=== PATIENT | male | born 1990 | race Caucasian/White ===

== ENCOUNTER 2022-09-16 09:24 | Day surgery (SDC) | payer MEDICARE, OTHER ==
[2022-09-16] MEDS ORDERED: SODIUM CHLORIDE 0.9% 500 ML 500 ML IV ONE (10:04)
[2022-09-16 10:15] LABS: Anisocytosis Slight; Basophils % (A) 1 %; Eosinophils # (A) 0.1 k/uL (0-0.7); Eosinophils % (A) 3 %; HCT 42.9 % (39.0-53.0); HGB 14.1 gm/dL (13.0-17.5); Lymphocytes # (A) 0.9 k/uL (1.0-4.8); Lymphocytes % (A) 21 %; MCH 31.4 pg (25.0-35.0); MCHC 32.9 g/dL (31.0-37.0); MCV 95.4 fL (80.0-100.0); Mean Platelet Volume 8.6; Monocytes # (A) 0.2 k/uL (0-1.0); Monocytes % (A) 5 %; Neutrophils % (A) 68 %; Platelet Count 159 k/uL (150-450); RDW 16.5 % (11.5-15.5); WBC 4.4 k/uL (3.8-10.6)
[2022-09-16] MEDS ORDERED: ONDANSETRON 4 MG/2 ML VIAL ONE (10:21)
[2022-09-16] MEDS ORDERED: ONDANSETRON 4 MG/2 ML VIAL IVP ONE (10:29)
[2022-09-16] MEDS ORDERED: DEXAMETHASONE SOD PHOSPHATE 4 MG/ML 1 ML VIAL IVP ONE (10:30)
[2022-09-16 10:39] LABS: Calcium 9.2 mg/dL (8.4-10.2); Potassium 3.7 mmol/L (3.5-5.1)
[2022-09-16] MEDS ORDERED: MIDAZOLAM 2 MG/2 ML VIAL IVP ONE (10:50)
[2022-09-16] MEDS ORDERED: fentaNYL (PF) 50 MCG/ML 2 ML AMP IVP ONE (10:51)
[2022-09-16] MEDS ORDERED: ROPIVACAINE 5 MG/ML 30 ML VIAL ONE (10:55)
[2022-09-16] MEDS ORDERED: GLYCOPYRROLATE 0.2 MG/ML 2 ML VIAL ONE (10:55)
[2022-09-16] MEDS ORDERED: LIDOCAINE 2% INJ 20 MG/ML (2 ML VIAL) ONE (10:55)
[2022-09-16] MEDS ORDERED: ROCURONIUM 10 MG/ML (5 ML VIAL) IV ONE (10:55)
[2022-09-16] MEDS ORDERED: SUCCINYLCHOLINE CHLORIDE 200 MG/10 ML VIAL IV ONE (10:55)
[2022-09-16] MEDS ORDERED: HEPARIN SODIUM,PORCINE 5,000 UNIT/ML 1 ML VIAL ONE (10:55)
[2022-09-16] MEDS ORDERED: PROPOFOL 10 MG/ML 20 ML VIAL IV ONE (10:55)
[2022-09-16] MEDS ORDERED: NEOSTIGMINE 1 MG/ML 10 ML VIAL ONE (10:55)
[2022-09-16] MEDS ORDERED: MIDAZOLAM 2 MG/2 ML VIAL ONE (10:55)
--- NOTE | 2022-09-16 11:13 | P.ANPRN ---
Procedure Note - Anesthesia - Nerve Block Performed Left Supraclavicular Time Out Performed: Yes (10:50) Date of Procedure: 09/16/22 Procedure Start Time: 10:50 Procedure Stop Time: 10:55 Location of Patient: PreOp Indication: Acute Post-Operative Pain, Requested by Surgeon (Dr Shah) Sedation Type: Sedate with meaningful contact maintained Preparation: Sterile Prep Position: Supine Catheter: None Needle Types: Pajunk Needle Gauge: Other (see comment) (22g) Ultrasound used to visualize needle placement: Yes Ultrasound used to observe medication spread: Yes Injectate: 0.5% Ropivacaine (see comment for volume) (20cc) Blood Aspirated: No Pain Paresthesia on Injection Noted: No Resistance on Injection: Normal Image Stored and Saved: Yes Events: Uneventful and Well Tolerated
[2022-09-16] MEDS ORDERED: THROMBIN (BOVINE) 5,000 UNIT VIAL TOPICAL ONE (11:27)
[2022-09-16] MEDS ORDERED: GELATIN SPONGE,ABSORB (LARGE) 1 EACH SPONGE TOPICAL ONE (11:27)
[2022-09-16] MEDS ORDERED: HEPARIN SODIUM,PORCINE 2,000 UNIT in SODIUM CHLORIDE 0.9% 500 ML 500 ML IRRIGATION ONE (11:28)
[2022-09-16] MEDS ORDERED: ceFAZolin 2 GM in SODIUM CHLORIDE 0.9% 500 ML 500 ML IRRIGATION ONE (11:29)
[2022-09-16 14:25] VITALS: TEMP 97.3
[2022-09-16 14:30] VITALS: RESP 16
[2022-09-16 15:08] VITALS: BP 116/65; PULSE 75
--- NOTE | 2022-09-16 16:09 | P.OP ---
Date of Procedure: 09/16/22 Preoperative Diagnosis: ESRD Postoperative Diagnosis: Same Procedure(s) Performed: Left upper extremity basilic vein transposition stage II Anesthesia: VALERIE Surgeon: Karlos Shah Estimated Blood Loss (ml): 20 Pathology: none sent Condition: stable Disposition: PACU Indications for Procedure: 32 year old gentleman with history of ESRD on HD via right chest catheter who previously underwent stage I BVT presents today for stage II. Description of Procedure: After written informed consent was obtained the patient all risks benefits competitions were described the patient is brought to the operative suite and laid in the supine position with the left arm placed on an armboard. The arm was prepped and draped in usual sterile fashion after appropriate anesthetic was performed per the anesthesiologist. Timeout was performed in normal fashion and antibiotics were administered prior to incision. A vertical incision was then created over the basilic vein just proximal to the elbow and dissection was carried down to the vein utilizing electrocautery. The vein was then dissected free in a circumferential manner. This was then followed up the medial aspect of the upper arm with serial incisions created to get access to the basilic vein. The basilic vein was dissected in a circumferential manner with branches ligated with 3-0 silk suture. Once complete dissection was carried out to the axilla the vein at the elbow just proximal to the previous anastomosis was clamped and ligated. Patient was then administered 3000 units of heparin. The vein was then marked and tunneled from the axilla to the existing anastomosis at the elbow. An end to end anastomosis was then created with 6-0 Prolene suture x 2. Prior to last sutures being placed control was released revealing good pulsatile blood flow into the anastomosis as well as good backbleeding from the vein itself. Final sutures were then placed and control was released. Good palpable thrill was noted throughout the proximal fistula to the mid upper arm. Ultrasound was then u tilized to visualize the fistula which demonstrated no evidence of twisting with good pulsatile blood flow throughout the entirety of the vein. The area was then copiously irrigated with antibiotics solution and the incisions were then closed in a multilayer fashion. The skin was cleansed and dressings were placed. Patient tolerated procedure well had a palpable radial pulse at the conclusion of the procedure.
== END 2022-09-16 15:25 | disposition home or self-care (01) ==
LOC: OR 09:24
PROVIDERS: ATTEND Surgery
DX: I12.0 Hypertensive chronic kidney disease with stage 5 chronic kidney disease or end stage renal disease (principal); N18.6 End stage renal disease; G89.18 Other acute postprocedural pain; E78.5 Hyperlipidemia, unspecified; Z95.5 Presence of coronary angioplasty implant and graft; K21.9 Gastro-esophageal reflux disease without esophagitis; Z86.73 Personal history of transient ischemic attack (TIA), and cerebral infarction without residual deficits; Z79.82 Long term (current) use of aspirin; Z79.899 Other long term (current) drug therapy
CPT/HCPCS: 64415; 80048; 85025; 36832; J2250; J0330; J1644; J1100; J2710; J0690; J2405; J3010; J2795; J2704; J2001

== ENCOUNTER 2022-10-14 00:13 | Emergency (ER) | payer MEDICARE, OTHER ==
[2022-10-14 00:31] VITALS: RESP 18; TEMP 98.1
--- NOTE | 2022-10-14 00:42 | ED ---
General Adult HPI - General Chief complaint: Recheck/Abnormal Lab/Rx Stated complaint: Vascular Consult Time Seen by Provider: 10/14/22 00:14 Source: EMS Mode of arrival: EMS - History of Present Illness Initial comments: This is a 32-year-old male with a significant past medical history including aortic grafting and end-stage renal disease on dialysis with a recently new left upper extremity fistula placed on 09/16/[address] Shah presents emergency department via EMS as a transfer patient from [facility]. The patient was transferred for evaluation for possible infected left upper extremity fistula. Workup was obtained at the outside facility that did not show an elevated white blood cell count or any signs of infection however the fistula itself was mildly erythematous and swollen. The patient did have a good thrill noted. The patient stated that he noted that it was more swollen today but had not looked at it "over the last several weeks." The patient himself on arrival was resting in bed comfortably without any acute pain but did state that the left upper extremity was sore area and the patient denied any other acute pain or complaints at this time including any lightheadedness, dizziness as well as any fevers and chills. - Related Data Home Medications Medication Instructions Recorded Confirmed Aspirin 81 mg PO DAILY 06/05/22 09/16/22 Atorvastatin [Lipitor] 40 mg PO HS 06/05/22 09/16/22 Calcium Acetate 667 mg PO TID-W/MEALS 06/05/22 09/16/22 Citalopram Hydrobromide 20 mg PO DAILY 06/05/22 09/16/22 [Citalopram HBr] Docusate [Colace] 100 mg PO DAILY PRN 06/05/22 09/16/22 Melatonin 6 mg PO HS 06/05/22 09/16/22 Midodrine HCl [ProAmantine] 2.5 mg PO DIRECTED PRN 06/05/22 09/16/22 Omeprazole 20 mg PO BID 06/05/22 09/16/22 Unk Vitamin B Complex 1 tab PO DAILY 06/05/22 09/16/22 Eliquis(Unknown) 1 tab PO BID 09/12/22 09/16/22 Furosemide [Lasix] 80 mg PO DAILY 09/12/22 09/16/22 Previous Rx's Medication Instructions Recorded Sulfamethox-Tmp 800-160Mg [Bactrim 1 tab PO Q12HR #14 tab 10/14/22 DS 800-160 mg] Allergies Allergy/AdvReac Type Severity Reaction Status Date / Time No Known Allergies Allergy Verified 09/16/22 09:51 Review of Systems ROS Statement: Those systems with pertinent positive or pertinent negative responses have been documented in the HPI. ROS Other: All systems not noted in ROS Statement are negative. Past Medical History Past Medical History: CVA/TIA, Dialysis, GERD/Reflux, Hyperlipidemia, Renal Disease Additional Past Medical History / Comment(s): dialysis MWF since 03/25 after Aortic aneurysm repair. stroke 11/23 spent a month in hospital then to rehab.home in december had another stroke sent to [facility]( discovered infection to aoritc repair ) sent him to [facility] aortic aneurysm replacement (with cadaver) in 01/24, then to [facility] D/C to home april 05. As a baby had a leaky valve and extra valve. some low BP with dialysis. short term memory loss. left foot feels asleep. left side weak. History of Any Multi-Drug Resistant Organisms: None Reported Additional Past Surgical History / Comment(s): aortic aneurysm repair 03/25, 2nd surgery replacement 01/28/22. Repair of leaky valve as infant. peritoneal dialysis catheter. stent in kidney. procedures at [facility] Past Anesthesia/Blood Transfusion Reactions: No Reported Reaction Smoking Status: Never smoker - Past Family History Mother Family Medical History: Cancer Additional Family Medical History / Comment(s): breast cancer. 2003 Father Family Medical History: Hyperlipidemia, Hypertension, Myocardial Infarction ([place]) General Exam Limitations: no limitations General appearance: alert, in no apparent distress Head exam: Present: atraumatic, normocephalic, normal inspection Eye exam: Present: normal appearance, PERRL Pupils: Present: normal accommodation ENT exam: Present: normal exam, normal oropharynx, mucous membranes moist Neck exam: Present: normal inspection, full ROM Respiratory exam: Present: normal lung sounds bilaterally Cardiovascular Exam: Present: regular rate, normal rhythm, normal heart sounds GI/Abdominal exam: Present: soft, normal bowel sounds Extremities exam: Present: normal inspection, full ROM, other (Swelling noted around the left upper extremity fistula with positive thrill. There was minor erythema and neck muscles around the fistula however there was no acute tenderness to palpation noted.) Back exam: Present: normal inspection, full ROM Neurological exam: Present: alert, oriented X3, CN II-XII intact Psychiatric exam: Present: normal affect, normal mood Skin exam: Present: warm, dry Course Vital Signs 10/14/22 00:16 Temperature 98.1 F Pulse Rate 84 Respiratory 18 Rate Blood Pressure 116/73 O2 Sat by Pulse 96 Oximetry Medical Decision Making - Medical Decision Making Was pt. sent in by a medical professional or institution (RONALD Kaur, WAISTLINE JOINER, urgent care, hospital, or jail...) When possible be specific @ -Yes, patient was transferred from [facility] for evaluation by vascular surgery. Did you speak to anyone other than the patient for history (EMS, parent, family, police, friend...)? What history was obtained from this source @ -No Did you review nursing and triage notes (agree or disagree)? Why? @ -I reviewed and agree with nursing and triage notes Were old charts reviewed (outside hosp., previous admission, EMS record, old EKG, old radiological studies, urgent care reports/EKG's, jail records)? Report findings @ -No old charts were reviewed Differential Diagnosis (chest pain, altered mental status, abdominal pain women, abdominal pain men, vaginal bleeding, weakness, fever, dyspnea, syncope, headache, dizziness, GI bleed, back pain, seizure, CVA, palpatations, mental health)? @ -Infected AV fistula, clotted AV fistula, cellulitis EKG interpreted by me (3pts min.). @ -None X-rays interpreted by me (1pt min.). @ -None done CT interpreted by me (1pt min.). @ -None done U/S interpreted by me (1pt. min.). @ -None done What testing was considered but not performed or refused? (CT, X-rays, U/S, labs)? Why? @ -Imaging was considered including computed tomography scan however there was no further imaging needed per vascular surgery recommendations. What meds were considered but not given or refused? Why? @ -None Did you discuss the management of the patient with other professionals (pr ofessionals i.e. RONALD Kaur, WAISTLINE JOINER, lab, RT, psych nurse, social service worker, casino runner, teacher, control systems drafting officer, disease case manager)? Give summary @ -Yes, Dr. Shah was contacted regarding the patient Was smoking cessation discussed for >3mins.? @ -No Was critical care preformed (if so, how long)? @ -No Were there social determinants of health that impacted care today? How? (Homelessness, low income, unemployed, alcoholism, drug addiction, transportation, low edu. Level, literacy, decrease access to med. care, custodial, rehab)? @ -No Was there de-escalation of care discussed even if they declined (Discuss DNR or withdrawal of care, Hospice)? DNR status @ -No What co-morbidities impacted this encounter? (DM, HTN, Smoking, COPD, CAD, Cancer, CVA, ARF, Chemo, Hep., AIDS, mental health diagnosis, sleep apnea, morbid obesity)? @ -End-stage renal disease on dialysis, recently placed fistula, thoracic aortic grafting and stenting Was patient admitted / discharged? Hospital course, mention meds given and route, prescriptions, significant lab abnormalities, going to OR and other pertinent info. @ -The patient was seen and evaluated emergency department. Physical exam, the patient was resting in bed without any acute distress. Vital signs admission were stable. Due to the nature the patient's presentation, the vascular surgeon, Dr. Shah, who performed his original surgery was contacted. He did state that the patient would require antibiotics however did not require to be evaluated as an admission to the hospital. He did state that he can evaluate t he patient in the office on Friday the patient was agreeable. I did speak to the patient regarding this and he did state that he would prefer to be discharged and to follow-up in the office while taking Bactrim. The patient was given a dose of vancomycin at the outside facility therefore was not started on Bactrim currently. The patient was given a prescription to start Bactrim in the morning. The patient was understanding of these instructions and all his questions were answered. The patient was discharged home in stable condition. Undiagnosed new problem with uncertain prognosis? @ -No Drug Therapy requiring intensive monitoring for toxicity (Heparin, Nitro, Insulin, Cardizem)? @ -No Were any procedures done? @ -No Diagnosis/symptom? @ -Left AV fistula infection Acute, or Chronic, or Acute on Chronic? @ -Acute on chronic Uncomplicated (without systemic symptoms) or Complicated (systemic symptoms)? @ -Uncomplicated Side effects of treatment? @ -No Exacerbation, Progression, or Severe Exacerbation? @ -No Poses a threat to life or bodily function? How? (Chest pain, [place], [place], pneumonia, PE, COPD, DKA, ARF, appy, cholecystitis, CVA, Diverticulitis, Homicidal, Suicidal, threat to staff... and all critical care pts) @ -No Disposition Clinical Impression: AV fistula infection Disposition: HOME SELF-CARE Condition: Stable Prescriptions: Sulfamethox-Tmp 800-160Mg [Bactrim DS 800-160 mg] 1 tab PO Q12HR #14 tab Is patient prescribed a controlled substance at d/c from ED?: No Referrals: Lakhwinder De Leon MD [Primary Care Provider] - 1-2 days Karlos Shah DO [STAFF PHYSICIAN] - 10/15/22 Time of Disposition: 00:05
[2022-10-14 01:53] VITALS: BP 119/72; PULSE 82
== END 2022-10-14 01:56 | disposition home or self-care (01) ==
LOC: EC 00:13
DX: L98.8 Other specified disorders of the skin and subcutaneous tissue (principal); E78.5 Hyperlipidemia, unspecified; K21.9 Gastro-esophageal reflux disease without esophagitis; Z79.82 Long term (current) use of aspirin; Z79.899 Other long term (current) drug therapy
CPT/HCPCS: 99283

== ENCOUNTER 2023-02-28 15:38 | Inpatient (IN) | payer MEDICARE, OTHER ==
[2023-02-28 16:27] LABS: Anisocytosis Slight; Basophils % (A) 0 %; Eosinophils # (A) 0.1 k/uL (0-0.7); Eosinophils % (A) 2 %; HCT 35.1 % (39.0-53.0); HGB 11.6 gm/dL (13.0-17.5); Lymphocytes # (A) 0.9 k/uL (1.0-4.8); Lymphocytes % (A) 14 %; MCH 31.1 pg (25.0-35.0); MCV 94.2 fL (80.0-100.0); Mean Platelet Volume 8.2; Monocytes # (A) 0.3 k/uL (0-1.0); Monocytes % (A) 5 %; Neutrophils # (A) 5.4 k/uL (1.3-7.7); Neutrophils % (A) 79 %; Platelet Count 193 k/uL (150-450); RBC 3.72 m/uL (4.30-5.90); RDW 16.6 % (11.5-15.5); WBC 6.8 k/uL (3.8-10.6)
[2023-02-28] MEDS ORDERED: MORPHINE SULFATE 4 MG/ML SYRINGE IV STA (16:47)
[2023-02-28] MEDS ORDERED: SODIUM CHLORIDE 0.9% 1,000 ML IV STA (16:47)
--- NOTE | 2023-02-28 16:54 | ED ---
Extremity Problem HPI - General Chief complaint: Extremity Problem,Nontraumatic Stated complaint: Fistula is blocked Time Seen by Provider: 02/28/23 16:02 Source: patient, RN notes reviewed, old records reviewed Mode of arrival: ambulatory Limitations: no limitations - History of Present Illness Initial comments: This is a 32-year-old male to the emergency department for evaluation today. Patient Dese for evaluation of significant blood thinners. Patient has severe pain in the left upper arm severe pain and swelling of the left upper extremity. Patient was unable to get dialysis on Friday and today secondary to the significant amount of swelling in his fistula site. MD Complaint: extremity pain, extremity swelling -: days(s) Location: left, upper extremity History of Same: Yes -: Yes myalgia Radiation: proximal, distal Severity scale (1-10): 10 Quality: stabbing, aching Consistency: constant Improves with: nothing Worsens with: nothing Associated Symptoms: denies other symptoms - Related Data Home Medications Medication Instructions Recorded Confirmed Aspirin 81 mg PO DAILY 06/05/22 02/28/23 Atorvastatin [Lipitor] 40 mg PO DAILY 06/05/22 02/28/23 Citalopram Hydrobromide 20 mg PO DAILY 06/05/22 02/28/23 [Citalopram HBr] Furosemide [Lasix] 80 mg PO DAILY 09/12/22 02/28/23 Apixaban [Eliquis] 5 mg PO BID 02/28/23 02/28/23 Calcium Acetate 667mg Capsule 1 cap PO TID-W/MEALS 02/28/23 02/28/23 Omeprazole 40 mg PO DAILY 02/28/23 02/28/23 Vit B Comp No.3/Folic/C/Biotin 1 tab PO DAILY 02/28/23 02/28/23 [Daphnie-Richard Rx Tablet] Previous Rx's Medication Instructions Recorded HYDROcodone/APAP 5-325MG [[place] 1 tab PO DIRECTED PRN 3 Days #3 03/02/23 5-325] tab Lidocaine-Prilocaine Cream [Emla 1 applic TOPICAL DIRECTED #5 gm 03/02/23 Cream 2.5%/2.5%] Sevelamer [Renvela] 1,600 mg PO TID-W/MEALS tab 03/02/23 Allergies Allergy/AdvReac Type Severity Reaction Status Date / Time No Known Allergies Allergy Verified 02/28/23 19:36 Review of Systems ROS Statement: Those systems with pertinent positive or pertinent negative responses have been documented in the HPI. ROS Other: All systems not noted in ROS Statement are negative. Past Medical History Past Medical History: CVA/TIA, Dialysis, GERD/Reflux, Hyperlipidemia, Renal Disease Additional Past Medical History / Comment(s): dialysis MWF since 03/25 after Aortic aneurysm repair. stroke 11/23 spent a month in hospital then to rehab.home in december had another stroke sent to [facility]( discovered i nfection to aoritc repair ) sent him to [facility] aortic aneurysm replacement (with cadaver) in 01/24, then to [facility] D/C to home april 05. As a baby had a leaky valve and extra valve. some low BP with dialysis. short term memory loss. left foot feels asleep. left side weak. History of Any Multi-Drug Resistant Organisms: None Reported Additional Past Surgical History / Comment(s): aortic aneurysm repair 03/25, 2nd surgery replacement 01/28/22. Repair of leaky valve as . peritoneal dialysis catheter. stent in kidney. procedures at [facility] Past Anesthesia/Blood Transfusion Reactions: No Reported Reaction Past Psychological History: Anxiety, Depression Smoking Status: Never smoker - Past Family History Mother Family Medical History: Cancer Additional Family Medical History / Comment(s): breast cancer. 2004 Father Family Medical History: Hyperlipidemia, Hypertension, Myocardial Infarction ([place]) General Exam Limitations: no limitations General appearance: alert, in no apparent distress, anxious Head exam: Present: atraumatic, normocephalic, normal inspection Eye exam: Present: normal appearance, PERRL, EOMI. Absent: scleral icterus, conjunctival injection, periorbital swelling ENT exam: Present: normal exam, mucous membranes moist Neck exam: Present: normal inspection. Absent: tenderness, meningismus, lymphadenopathy Respiratory exam: Present: normal lung sounds bilaterally. Absent: respiratory distress, wheezes, rales, rhonchi, stridor Cardiovascular Exam: Present: normal rhythm, tachycardia, normal heart sounds. Absent: systolic murmur, diastolic murmur, rubs, gallop, clicks GI/Abdominal exam: Present: soft, normal bowel sounds. Absent: distended, tenderness, guarding, rebound, rigid Extremities exam: Present: tenderness, other (significant edema LUE). Absent: pedal edema, joint swelling, calf tenderness Back exam: Present: normal inspection Neurological exam: Present: alert, oriented X3, CN II-XII intact Psychiatric exam: Present: normal affect, normal mood Skin exam: Present: warm, dry, intact, normal color. Absent: rash Course Vital Signs 02/28/23 02/28/23 02/28/23 15:44 17:07 19:39 Temperature 98.3 F Pulse Rate 105 H 99 92 Respiratory 18 18 18 Rate Blood Pressure 124/72 120/72 119/77 O2 Sat by Pulse 95 100 Oximetry 02/28/23 22:00 Temperature Pulse Rate 90 Respiratory 18 Rate Blood Pressure 121/84 O2 Sat by Pulse 100 Oximetry - Reevaluation(s) Reevaluation #1: 02/28/23 17:21 Medical record is reviewed Reevaluation #2: 02/28/23 21:12 Patient having persistent pain Reevaluation #3: 02/28/23 21:12 Patient informed of results questions answered Reevaluation #4: 02/28/23 17:21 Was pt. sent in by a medical professional or institution (, PA, DETONATOR ASSEMBLER, urgent care, hospital, or custodial...) When possible be specific @ -no Did you speak to anyone other than the patient for history (EMS, parent, family, police, friend...)? What history was obtained from this source @ -no Did you review nursing and triage notes (agree or disagree)? Why? @ -agree Are old charts reviewed (outside hosp., previous admission, EMS record, old EKG, old radiological studies, urgent care reports/EKG's, custodial records)? Report findings @ -yes Differential Diagnosis (chest pain, altered mental status, abdominal pain women, abdominal pain men, vaginal bleeding, weakness, fever, dyspnea, syncope, headache, dizziness, GI bleed, back pain, seizure, CVA, palpatations, mental health, musculoskeletal)? @ -prior EKG interpreted by me (3pts min.). @ -yes X-rays interpreted by me (1pt min.). @ -no CT interpreted by me (1pt min.). @ -no U/S interpreted by me (1pt. min.). @ -yes What testing was considered but not performed or refused? (CT, X-rays, U/S, labs)? Why? @ -none What meds were considered but not given or refused? Why? @ -none Did you discuss the management of the patient with other professionals (professionals i.e. , PA, DETONATOR ASSEMBLER, lab, RT, psych nurse, social media job titles, testing consultant, teacher, hearing officer, vocational case manager)? Give summary @ -no Was smoking cessation discussed for >3mins.? @ -no Was critical care preformed (if so, how long)? @ -no Were there social determinants of health that impacted care today? How? (Homelessness, low income, unemployed, alcoholism, drug addiction, transportatio n, low edu. Level, literacy, decrease access to med. care, skilled nursing, rehab)? @ -none Was there de-escalation of care discussed even if they declined (Discuss DNR or withdrawal of care, Hospice)? DNR status @ -no What co-morbidities impacted this encounter? (DM, HTN, Smoking, COPD, CAD, Cancer, CVA, ARF, Chemo, Hep., AIDS, mental health diagnosis, sleep apnea, morbid obesity)? @ -none Was patient admitted / discharged? Hospital course, mention meds given and route, prescriptions, significant lab abnormalities, going to OR and other pertinent info. @ - 32 male to the emergency department for evaluation of dialysis graft malfunction fistula malfunction, patient does have significant hematoma above left upper arm, patient be admitted for vascular consult need for dialysis as he admits his last 2 dialysis appointments Admitted Undiagnosed new problem with uncertain prognosis? @ -no Drug Therapy requiring intensive monitoring for toxicity (Heparin, Nitro, Insulin, Cardizem)? @ -no Were any procedures done? @ -no Diagnosis/symptom? @ -Hematoma above her arm above fistula Acute, or Chronic, or Acute on Chronic? @ -Acute Uncomplicated (without systemic symptoms) or Complicated (systemic symptoms)? @ -Complicated Side effects of treatment? @ -no Exacerbation, Progression, or Severe Exacerbation? @ -exacerbation Poses a threat to life or bodily function? How? (Chest pain, [place], [place], pneumonia, PE, COPD, DKA, ARF, appy, cholecystitis, CVA, Diverticulitis, Homicidal, Suicidal, threat to staff... and all critical care pts) @ -yes if unable to get dialysis - Consultations Consultation #1: Spoke with alana who will admit this patient Medical Decision Making - Medical Decision Making 32 male to the emergency department for evaluation of dialysis graft malfunction fistula malfunction, patient does have significant hematoma above left upper arm, patient be admitted for vascular consult need for dialysis as he admits his last 2 dialysis appointments - Lab Data Result diagrams: 03/02/23 11:27 03/02/23 11:27 Lab Results 02/28/23 02/28/23 02/28/23 Range/Units 16:09 16:09 16:09 WBC 6.8 (3.8-10.6) k/uL RBC 3.72 L (4.30-5.90) m/uL Hgb 11.6 L (13.0-17.5) gm/dL Hct 35.1 L (39.0-53.0) % MCV 94.2 (80.0-100.0) fL MCH 31.1 (25.0-35.0) pg MCHC 33.0 (31.0-37.0) g/dL RDW 16.6 H (11.5-15.5) % Plt Count 193 (150-450) k/uL MPV 8.2 Neutrophils % 79 % Lymphocytes % 14 % Monocytes % 5 % Eosinophils % 2 % Basophils % 0 % Neutrophils # 5.4 (1.3-7.7) k/uL Lymphocytes # 0.9 L (1.0-4.8) k/uL Monocytes # 0.3 (0-1.0) k/uL Eosinophils # 0.1 (0-0.7) k/uL Basophils # 0.0 (0-0.2) k/uL Anisocytosis Slight PT (10.0-12.5) sec INR (<1.2) APTT 33.5 H (22.0-30.0) sec Sodium 135 L (137-145) mmol/L Potassium 4.7 (3.5-5.1) mmol/L Chloride 95 L (98-107) mmol/L Carbon Dioxide 20 L (22-30) mmol/L Anion Gap 20 mmol/L BUN 91 H (9-20) mg/dL Creatinine 15.75 H* (0.66-1.25) mg/dL Est GFR (CKD-EPI)AfAm 4 (>60 ml/min/1.73 sqM) Est GFR (CKD-EPI)NonAf 4 (>60 ml/min/1.73 sqM) Glucose 83 (74-99) mg/dL Plasma Lactic Acid Tomasz (0.7-2.0) mmol/L Calcium 8.4 (8.4-10.2) mg/dL Phosphorus (2.5-4.5) mg/dL Magnesium (1.6-2.3) mg/dL Total Bilirubin 0.7 (0.2-1.3) mg/dL AST 19 (17-59) U/L ALT 24 (4-49) U/L Alkaline Phosphatase 95 (38-126) U/L NT-Pro-B Natriuret Pep pg/mL Total Protein 6.6 (6.3-8.2) g/dL Albumin 3.5 (3.5-5.0) g/dL 02/28/23 02/28/23 02/28/23 Range/Units 16:09 16:09 16:09 WBC (3.8-10.6) k/uL RBC (4.30-5.90) m/uL Hgb (13.0-17.5) gm/dL Hct (39.0-53.0) % MCV (80.0-100.0) fL MCH (25.0-35.0) pg MCHC (31.0-37.0) g/dL RDW (11.5-15.5) % Plt Count (150-450) k/uL MPV Neutrophils % % Lymphocytes % % Monocytes % % Eosinophils % % Basophils % % Neutrophils # (1.3-7.7) k/uL Lymphocytes # (1.0-4.8) k/uL Monocytes # (0-1.0) k/uL Eosinophils # (0-0.7) k/uL Basophils # (0-0.2) k/uL Anisocytosis PT 17.8 H (10.0-12.5) sec INR 1.8 H (<1.2) APTT (22.0-30.0) sec Sodium (137-145) mmol/L Potassium (3.5-5.1) mmol/L Chloride (98-107) mmol/L Carbon Dioxide (22-30) mmol/L Anion Gap mmol/L BUN (9-20) mg/dL Creatinine (0.66-1.25) mg/dL Est GFR (CKD-EPI)AfAm (>60 ml/min/1.73 sqM) Est GFR (CKD-EPI)NonAf (>60 ml/min/1.73 sqM) Glucose (74-99) mg/dL Plasma Lactic Acid Tomasz 1.3 (0.7-2.0) mmol/L Calcium (8.4-10.2) mg/dL Phosphorus 5.1 H (2.5-4.5) mg/dL Magnesium 2.1 (1.6-2.3) mg/dL Total Bilirubin (0.2-1.3) mg/dL AST (17-59) U/L ALT (4-49) U/L Alkaline Phosphatase (38-126) U/L NT-Pro-B Natriuret Pep 86269 pg/mL Total Protein (6.3-8.2) g/dL Albumin (3.5-5.0) g/dL - Radiology Data Radiology results: report reviewed (Chest x-ray x-ray forearm negative for traumatic injury, ultrasound left upper extremity positive for hematoma), image reviewed Disposition Clinical Impression: Hemodialysis catheter dysfunction, Hematoma Disposition: ADMITTED IP TO THIS HOSP Condition: Fair Is patient prescribed a controlled substance at d/c from ED?: No Time of Disposition: 21:10
[2023-02-28 17:32] LABS: INR 1.8 (<1.2); Prothrombin Time 17.8 sec (10.0-12.5)
[2023-02-28 17:56] LABS: ALT 24 U/L (4-49); AST 19 U/L (17-59); Albumin 3.5 g/dL (3.5-5.0); Alkaline Phosphatase 95 U/L (38-126); Anion Gap 20 mmol/L; Blood Urea Nitrogen 91 mg/dL (9-20); Calcium 8.4 mg/dL (8.4-10.2); Carbon Dioxide 20 mmol/L (22-30); Chloride 95 mmol/L (98-107); Glucose 83 mg/dL (74-99); Potassium 4.7 mmol/L (3.5-5.1); Sodium 135 mmol/L (137-145); Total Bilirubin 0.7 mg/dL (0.2-1.3); Total Protein 6.6 g/dL (6.3-8.2)
[2023-02-28 17:57] LABS: Magnesium 2.1 mg/dL (1.6-2.3); Phosphorus 5.1 mg/dL (2.5-4.5)
[2023-02-28 18:02] LABS: African American GFR (CKD) 4 (>60 ml/min/1.73 sqM); Non-African American GFR(CKD) 4 (>60 ml/min/1.73 sqM)
--- NOTE | 2023-02-28 20:15 | XR ---
EXAMINATION TYPE: XR chest 1V DATE OF EXAM: 02/28/2023 5:04 PM CLINICAL INDICATION:Male, 32 years old with history of pain; PH[facility] COMPARISON: None TECHNIQUE: XR chest 1V Frontal view of the chest. FINDINGS: Lungs/Pleura: Mild blunting of right costophrenic angle. No focal consolidation or pneumothorax seen. Pulmonary vascularity: Unremarkable. Heart/mediastinum: Cardiac and mediastinal silhouettes appear within normal limits. There are multipl e sternal wires and surgical clips suggesting prior cardiothoracic surgery. A loop recorder projects over the heart. There are EKG leads. Musculoskeletal: No definite acute process as seen. Other findings: None IMPRESSION: 1. Postoperative changes with mild blunting of the right costophrenic angle which could indicate sma ll effusion or pleural thickening/scarring. 2. Otherwise no acute cardiopulmonary disease/process.
--- NOTE | 2023-02-28 20:19 | XR ---
EXAMINATION TYPE: XR humerus LT DATE OF EXAM: 02/28/2023 5:05 PM CLINICAL INDICATION:Male, 32 years old with history of Severe Edema; PHH COMPARISON: None TECHNIQUE: The left humerus was examined in frontal and lateral projections. FINDINGS: Osseous mineralization appears appropriate. No destructive bone lesion or aggressive perios titis. Small sclerotic densities in the humeral head could relate to bone islands. No discrete focal soft tissue abnormality is evident. Mild edema is suggested. No radiopaque foreign body is seen. The remaining portions of the visualized chest are unremarkable. IMPRESSION: No acute osseous pathology.
--- NOTE | 2023-02-28 20:33 | US ---
EXAMINATION TYPE: Pre-Operative Non-Invasive Evaluation of the hand for Potential Radial Artery [address], Measurements only DATE OF EXAM: 02/28/2023 5:42 PM CLINICAL INDICATION: Male, 32 years old with history of pain; Sever swelling/bruising to left upper m edial arm x 4 days after dialysis on Friday SIDE PERFORMED: Left TECHNIQUE: Grayscale sonography with color Doppler and waveforms was performed in the area of concer n, including dialysis graft and area of swelling in the medial upper left arm. FINDINGS: Left arm dialysis graft/fistula appears patent. Large, complex collection left medial upper arm posterior to the fistula in area of patient's swell ing= 15.7 x 4.7 x 6.9 cm . No definite abnormal Doppler flow is seen in this. IMPRESSION: 1. Left arm dialysis graft/fistula appears patent. 2. Large, complex collection adjacent to the fistula in the area of swelling measures 15.7 x 4.7 x 6 .9 cm, without associated abnormal Doppler flow seen. Likely considerations include hematoma. Follow- up as clinically warranted.
[2023-02-28] MEDS ORDERED: NALOXONE 0.4 MG/ML 1 ML VIAL IV PRN (21:09)
[2023-02-28] MEDS: MORPHINE SULFATE 4 MG/ML SYRINGE IV PRN (21:41)
--- NOTE | 2023-02-28 23:43 | P.HPIM ---
History of Present Illness H&P Date: 02/28/23 Patient is a 32-year-old male with a PMH of ESRD secondary to polycystic kidney disease on HD MWF via LUE fistula, multiple CVAs, status post open heart surgery for valvular repair as per patient who presents to the emergency room for a malfunctioning fistula. Patient reports he has been on dialysis for the past 4 years but was unable to get his scheduled HD on Friday and today due to swelling and pain of his left arm proximal to the fistula. He reports ongoing pain at site, 5 out of 10. Denied fever, chills, chest pain, shortness of breath, nausea, vomiting, diaphoresis. Denied any trauma to the site. In the emergency room, upper extremity arterial Doppler revealed that the fistula was patent with a large complex collection adjacent to the fistula with area of swelling measuring 15.7 x 4.7 x 6.9 cm, concerning for hematoma. A chest x-ray revealed no significant acute abnormalities. Left humeral x-ray was unremarkable. Laboratory evaluation was remarkable for hemoglobin 11.6, BUN 91, creatinine 15.75, proBNP 12,300. ED documentation reviewed and case discussed with ED provider. Review of systems: Pertinent positives and negatives as discussed in HPI, a complete review of systems was performed and all other systems are negative. Physical examination: Vital signs reviewed General: non toxic, no distress, appears older than stated age, normal weight Derm: Left upper extremity fistula with palpable thrill noted with significant arm swelling with minimal erythema or induration, warm Head: atraumatic, normocephalic, symmetric Eyes: EOMI, no lid lag, anicteric sclera, pupils equal round reactive to light ENT: Nose and ears atraumatic Neck: No cervical lymphadenopathy, trachea midline, supple Mouth: no lip lesion, mucus membranes moist Cardiovascular: S1S2 reg, no murmur, positive dorsalis pedis pulse bilateral, no edema Lungs: CTA bilateral, no rhonchi, no rales, no accessory muscle use Abdominal: soft, nontender to palpation, no guarding Ext: muscle strength 5 out of 5 in all 4 extremities grossly, no gross muscle atrophy, no contractures, Neuro: CN II-XI grossly intact, no gross focal neuro deficits Psych: Alert, oriented, appropriate affect Assessment: Malfunctioning LUE fistula with suspected hematoma On Eliquis, patient not sure why he's on it Chronic conditions: Status post valvular repair, hypertension, hyperlipidemia, history of CVAs Imaging: In the emergency room, upper extremity arterial Doppler revealed that the fistula was patent with a large complex collection adjacent to the fistula with area of swelling measuring 15.7 x 4.7 x 6.9 cm, concerning for hematoma. A chest x-ray revealed no significant acute abnormalities. Left humeral x-ray was unremarkable. Data Review: Laboratory evaluation was remarkable for hemoglobin 11.6, BUN 91, creatinine 15.75, proBNP 12,300. Plan: Vascular surgery consulted Nephrology consulted for resumption of hemodialysis Pain control with morphine 4 mg IV every 4 hours when necessary Continue home medications Hold off on Eliquis for now in setting of suspected hematoma DVT prophylaxis: Eliquis The patient is admitted with an anticipated greater than 2 midnight stay for evaluation of fistula repair CODE STATUS: Full Code Discussed with: Patient Anticipated discharge place: Home Past Medical History Past Medical History: CVA/TIA, Dialysis, GERD/Reflux, Hyperlipidemia, Renal Disease Additional Past Medical History / Comment(s): dialysis MWF since 03/25 after Aortic aneurysm repair. stroke 11/23 spent a month in hospital then to rehab.home in december had another stroke sent to [facility]( discovered infection to aoritc repair ) sent him to [facility] aortic aneurysm replacement (with cadaver) in 01/24, then to [facility] D/C to home april 05. As a baby had a leaky valve and extra valve. some low BP with dialysis. short term memory loss. left foot feels asleep. left side weak. History of Any Multi-Drug Resistant Organisms: None Reported Additional Past Surgical History / Comment(s): aortic aneurysm repair 03/25, 2nd surgery replacement 01/28/22. Repair of leaky valve as infant. peritoneal dialysis catheter. stent [facility] kidney[facility] Past Anesthesia/Blood Transfusion Reactions: No Reported Reaction Past Psychological History: Anxiety, Depression Smoking Status: Vaper Past Alcohol Use History: None Reported Past Drug Use History: None Reported - Past Family History Mother Family Medical History: Cancer Additional Family Medical History / Comment(s): breast cancer. 2003 Father Family Medical History: Hyperlipidemia, Hypertension, Myocardial Infarction ([place]) Medications and Allergies Home Medications Medication Instructions Recorded Confirmed Type Aspirin 81 mg PO DAILY 06/05/22 02/28/23 History Atorvastatin [Lipitor] 40 mg PO DAILY 06/05/22 02/28/23 History Citalopram Hydrobromide 20 mg PO DAILY 06/05/22 02/28/23 History [Citalopram HBr] Furosemide [Lasix] 80 mg PO DAILY 09/12/22 02/28/23 History Apixaban [Eliquis] 5 mg PO BID 02/28/23 02/28/23 History Calcium Acetate 667mg Capsule 1 cap PO TID-W/MEALS 02/28/23 02/28/23 History Omeprazole 40 mg PO DAILY 02/28/23 02/28/23 History Vit B Comp No.3/Folic/C/Biotin 1 tab PO DAILY 02/28/23 02/28/23 History [Daphnie-Richard Rx Tablet] Allergies Allergy/AdvReac Type Severity Reaction Status Date / Time No Known Allergies Allergy Verified 02/28/23 19:36 Physical Exam Vitals: Vital Signs Temp Pulse Pulse Resp BP BP Pulse Ox 02/28/23 22:28 97.7 F 94 16 125/76 97 02/28/23 22:00 90 18 121/84 100 02/28/23 19:39 92 18 119/77 02/28/23 17:07 99 18 120/72 100 02/28/23 15:44 98.3 F 105 H 18 124/72 95 Intake and Output 02/28/23 02/28/23 03/01/23 14:59 22:59 06:59 Other: Weight 72.575 kg 72.575 kg Results CBC & Chem 7: 02/28/23 16:09 02/28/23 16:09 Labs: Abnormal Lab Results - Last 24 Hours (Table) 02/28/23 02/28/23 02/28/23 Range/Units 16:09 16:09 16:09 RBC 3.72 L (4.30-5.90) m/uL Hgb 11.6 L (13.0-17.5) gm/dL Hct 35.1 L (39.0-53.0) % RDW 16.6 H (11.5-15.5) % Lymphocytes # 0.9 L (1.0-4.8) k/uL PT (10.0-12.5) sec INR (<1.2) APTT 33.5 H (22.0-30.0) sec Sodium 135 L (137-145) mmol/L Chloride 95 L (98-107) mmol/L Carbon Dioxide 20 L (22-30) mmol/L BUN 91 H (9-20) mg/dL Creatinine 15.75 H* (0.66-1.25) mg/dL Phosphorus (2.5-4.5) mg/dL 02/28/23 02/28/23 Range/Units 16:09 16:09 RBC (4.30-5.90) m/uL Hgb (13.0-17.5) gm/dL Hct (39.0-53.0) % RDW (11.5-15.5) % Lymphocytes # (1.0-4.8) k/uL PT 17.8 H (10.0-12.5) sec INR 1.8 H (<1.2) APTT (22.0-30.0) sec Sodium (137-145) mmol/L Chloride (98-107) mmol/L Carbon Dioxide (22-30) mmol/L BUN (9-20) mg/dL Creatinine (0.66-1.25) mg/dL Phosphorus 5.1 H (2.5-4.5) mg/dL Thrombosis Risk Factor Assmnt - Choose All That Apply Any of the Below Risk Factors Present?: No Other Risk Factors: No Other congenital or acquired thrombophilia - If yes, enter type in comment: No Thrombosis Risk Factor Assessment Level: Very Low Risk
[2023-02-28] MEDS: ACETAMINOPHEN TAB 325 MG TAB PO PRN (23:59)
[2023-03-01] MEDS: MORPHINE SULFATE 4 MG/ML SYRINGE IV PRN ×3 (02:47→19:01)
[2023-03-01 06:11] LABS: Anisocytosis Slight; Basophils % (A) 1 %; Eosinophils # (A) 0.2 k/uL (0-0.7); Eosinophils % (A) 3 %; HCT 33.8 % (39.0-53.0); Lymphocytes % (A) 14 %; MCH 30.7 pg (25.0-35.0); MCHC 32.6 g/dL (31.0-37.0); MCV 94.1 fL (80.0-100.0); Mean Platelet Volume 8.5; Monocytes # (A) 0.4 k/uL (0-1.0); Monocytes % (A) 5 %; Neutrophils # (A) 5.7 k/uL (1.3-7.7); Neutrophils % (A) 77 %; Platelet Count 177 k/uL (150-450); RBC 3.59 m/uL (4.30-5.90); RDW 16.6 % (11.5-15.5); WBC 7.4 k/uL (3.8-10.6)
[2023-03-01 06:29] LABS: ALT 22 U/L (4-49); AST 16 U/L (17-59); Albumin 3.5 g/dL (3.5-5.0); Alkaline Phosphatase 84 U/L (38-126); Anion Gap 23 mmol/L; Blood Urea Nitrogen 89 mg/dL (9-20); Calcium 8.2 mg/dL (8.4-10.2); Carbon Dioxide 18 mmol/L (22-30); Chloride 94 mmol/L (98-107); Glucose 76 mg/dL (74-99); Magnesium 1.9 mg/dL (1.6-2.3); Phosphorus 6.7 mg/dL (2.5-4.5); Potassium 4.7 mmol/L (3.5-5.1); Sodium 135 mmol/L (137-145); Total Bilirubin 0.8 mg/dL (0.2-1.3); Total Protein 6.7 g/dL (6.3-8.2)
[2023-03-01 06:35] LABS: African American GFR (CKD) 4 (>60 ml/min/1.73 sqM); Non-African American GFR(CKD) 3 (>60 ml/min/1.73 sqM)
[2023-03-01] MEDS: ATORVASTATIN 40 MG TAB PO SCH (08:05)
[2023-03-01] MEDS: CITALOPRAM HYDROBROMIDE 20 MG TAB PO SCH (08:05)
[2023-03-01] MEDS: ASPIRIN 81 MG PO SCH (08:05)
[2023-03-01] MEDS ORDERED: APIXABAN 5 MG TAB PO SCH (09:00)
--- NOTE | 2023-03-01 09:32 | P.GSCN ---
History of Present Illness Consult date: 03/01/23 Reason for Consult: Left upper extremity hematoma History of present illness: Patient is a 32-year-old male who is 5, hemodialysis dependent who has a left upper extremity arteriovenous graft. This is been working well for him. He dialyzes on Wednesdays and Fridays. His last dialysis was Friday and was unremarkable. Post dialysis he developed a large hematoma. He was seen in dialysis on Friday and apparently was the technicians were not able cannulate his graft. The patient presented Friday for dialysis and again dialysis was not able to be performed and the patient was referred to the emergency room. He did undergo duplex imaging which demonstrates the graft to be patent however the bicep area is involved with a large hematoma. Patient denies any hand or forearm numbness or other issues. He ate breakfast this morning. Past Medical History Past Medical History: CVA/TIA, Dialysis, GERD/Reflux, Hyperlipidemia, Renal Disease Additional Past Medical History / Comment(s): dialysis MWF since 03/25 after Aortic aneurysm repair. stroke 11/23 spent a month in hospital then to rehab.home in december had another stroke sent to [facility]( discovered infection to aoritc repair ) sent him to [facility] aortic aneurysm replacement (with cadaver) in 01/24, then to [facility] D/C to home april 05. As a baby had a leaky valve and extra valve. some low BP with dialysis. short term memory loss. left foot feels asleep. left side weak. History of Any Multi-Drug Resistant Organisms: None Reported Additional Past Surgical History / Comment(s): aortic aneurysm repair 03/25, 2nd surgery replacement 01/28/22. Repair of leaky valve as . peritoneal dialysis catheter. stent in kidney. procedures at [facility] Past Anesthesia/Blood Transfusion Reactions: No Reported Reaction Past Psychological History: Anxiety, Depression Smoking Status: Vaper Past Alcohol Use History: None Reported Past Drug Use History: None Reported - Past Family History Mother Family Medical History: Cancer Additional Family Medical History / Comment(s): breast cancer. 2003 Father Family Medical History: Hyperlipidemia, Hypertension, Myocardial Infarction (ID) Medications and Allergies Home Medications Medication Instructions Recorded Confirmed Type Aspirin 81 mg PO DAILY 06/05/22 02/28/23 History Atorvastatin [Lipitor] 40 mg PO DAILY 06/05/22 02/28/23 History Citalopram Hydrobromide 20 mg PO DAILY 06/05/22 02/28/23 History [Citalopram HBr] Furosemide [Lasix] 80 mg PO DAILY 09/12/22 02/28/23 History Apixaban [Eliquis] 5 mg PO BID 02/28/23 02/28/23 History Calcium Acetate 667mg Capsule 1 cap PO TID-W/MEALS 02/28/23 02/28/23 History Omeprazole 40 mg PO DAILY 02/28/23 02/28/23 History Vit B Comp No.3/Folic/C/Biotin 1 tab PO DAILY 02/28/23 02/28/23 History [Daphnie-Richard Rx Tablet] Allergies Allergy/AdvReac Type Severity Reaction Status Date / Time No Known Allergies Allergy Verified 02/28/23 19:36 Surgical - Exam Osteopathic Statement: *. No significant issues noted on an osteopathic structural exam other than those noted in the History and Physical/Consult. Vital Signs Temp Pulse Resp BP Pulse Ox 98.3 F 105 H 18 124/72 95 02/28/23 15:44 02/28/23 15:44 02/28/23 15:44 02/28/23 15:44 02/28/23 15:44 Patient Seen Date: 03/01/23 Patient Seen Time: 09:05 Patient is awake and alert. He reports no distress. Patient is a palpable radial pulse on the left upper extremity. The patient has hematoma/seroma in the humeral area on the left. The graft is relatively easily palpable. I discussed with the patient my hope that he was able to be dialyzed today. If he cannot undergo dialysis he will require placement of at least a temporary catheter. I await dialysis evaluation in this regard. Results - Labs 03/01/23 05:29 03/01/23 05:29 Abnormal Lab Results - Last 24 Hours (Table) 02/28/23 02/28/23 02/28/23 Range/Units 16:09 16:09 16:09 RBC 3.72 L (4.30-5.90) m/uL Hgb 11.6 L (13.0-17.5) gm/dL Hct 35.1 L (39.0-53.0) % RDW 16.6 H (11.5-15.5) % Lymphocytes # 0.9 L (1.0-4.8) k/uL PT (10.0-12.5) sec INR (<1.2) APTT 33.5 H (22.0-30.0) sec Sodium 135 L (137-145) mmol/L Chloride 95 L (98-107) mmol/L Carbon Dioxide 20 L (22-30) mmol/L BUN 91 H (9-20) mg/dL Creatinine 15.75 H* (0.66-1.25) mg/dL Calcium (8.4-10.2) mg/dL Phosphorus (2.5-4.5) mg/dL AST (17-59) U/L 02/28/23 02/28/23 03/01/23 Range/Units 16:09 16:09 05:29 RBC 3.59 L (4.30-5.90) m/uL Hgb 11.0 L (13.0-17.5) gm/dL Hct 33.8 L (39.0-53.0) % RDW 16.6 H (11.5-15.5) % Lymphocytes # (1.0-4.8) k/uL PT 17.8 H (10.0-12.5) sec INR 1.8 H (<1.2) APTT (22.0-30.0) sec Sodium (137-145) mmol/L Chloride (98-107) mmol/L Carbon Dioxide (22-30) mmol/L BUN (9-20) mg/dL Creatinine (0.66-1.25) mg/dL Calcium (8.4-10.2) mg/dL Phosphorus 5.1 H (2.5-4.5) mg/dL AST (17-59) U/L 03/01/23 Range/Units 05:29 RBC (4.30-5.90) m/uL Hgb (13.0-17.5) gm/dL Hct (39.0-53.0) % RDW (11.5-15.5) % Lymphocytes # (1.0-4.8) k/uL PT (10.0-12.5) sec INR (<1.2) APTT (22.0-30.0) sec Sodium 135 L (137-145) mmol/L Chloride 94 L (98-107) mmol/L Carbon Dioxide 18 L (22-30) mmol/L BUN 89 H (9-20) mg/dL Creatinine 16.26 H* (0.66-1.25) mg/dL Calcium 8.2 L (8.4-10.2) mg/dL Phosphorus 6.7 H (2.5-4.5) mg/dL AST 16 L (17-59) U/L Diabetes panel 02/28/23 03/01/23 Range/Units 16:09 05:29 Sodium 135 L 135 L (137-145) mmol/L Potassium 4.7 4.7 (3.5-5.1) mmol/L Chloride 95 L 94 L (98-107) mmol/L Carbon Dioxide 20 L 18 L (22-30) mmol/L BUN 91 H 89 H (9-20) mg/dL Creatinine 15.75 H* 16.26 H* (0.66-1.25) mg/dL Glucose 83 76 (74-99) mg/dL Calcium 8.4 8.2 L (8.4-10.2) mg/dL AST 19 16 L (17-59) U/L ALT 24 22 (4-49) U/L Alkaline Phosphatase 95 84 (38-126) U/L Total Protein 6.6 6.7 (6.3-8.2) g/dL Albumin 3.5 3.5 (3.5-5.0) g/dL Calcium panel 02/28/23 02/28/23 03/01/23 Range/Units 16:09 16:09 05:29 Calcium 8.4 8.2 L (8.4-10.2) mg/dL Phosphorus 5.1 H 6.7 H (2.5-4.5) mg/dL Albumin 3.5 3.5 (3.5-5.0) g/dL Pituitary panel 02/28/23 03/01/23 Range/Units 16:09 05:29 Sodium 135 L 135 L (137-145) mmol/L Potassium 4.7 4.7 (3.5-5.1) mmol/L Chloride 95 L 94 L (98-107) mmol/L Carbon Dioxide 20 L 18 L (22-30) mmol/L BUN 91 H 89 H (9-20) mg/dL Creatinine 15.75 H* 16.26 H* (0.66-1.25) mg/dL Glucose 83 76 (74-99) mg/dL Calcium 8.4 8.2 L (8.4-10.2) mg/dL Adrenal panel 02/28/23 03/01/23 Range/Units 16:09 05:29 Sodium 135 L 135 L (137-145) mmol/L Potassium 4.7 4.7 (3.5-5.1) mmol/L Chloride 95 L 94 L (98-107) mmol/L Carbon Dioxide 20 L 18 L (22-30) mmol/L BUN 91 H 89 H (9-20) mg/dL Creatinine 15.75 H* 16.26 H* (0.66-1.25) mg/dL Glucose 83 76 (74-99) mg/dL Calcium 8.4 8.2 L (8.4-10.2) mg/dL Total Bilirubin 0.7 0.8 (0.2-1.3) mg/dL AST 19 16 L (17-59) U/L ALT 24 22 (4-49) U/L Alkaline Phosphatase 95 84 (38-126) U/L Total Protein 6.6 6.7 (6.3-8.2) g/dL Albumin 3.5 3.5 (3.5-5.0) g/dL Assessment and Plan Assessment: Hematoma/seroma left biceps area. CKD, dialysis dependent. Plan: Await attempt at dialysis. I believe the patient has a reasonable chance of this being
--- NOTE | 2023-03-01 15:59 | P.NPCON ---
History of Present Illness - Reason for Consult Consult date: 03/01/23 end stage renal disease - Chief Complaint Dialysis access. - History of Present Illness 32-year-old ESRD on hemodialysis secondary to ADPKD, at [facility] schedule. He missed treatments because of arm swelling. He has left upper arm AVG. Denies any nausea vomiting diarrhea. No chest pain or shortness of breath. Review of Systems Constitutional: Reports as per HPI Past Medical History Past Medical History: CVA/TIA, Dialysis, GERD/Reflux, Hyperlipidemia, Renal Disease Additional Past Medical History / Comment(s): dialysis MWF since 03/25 after Aortic aneurysm repair. stroke 11/23 spent a month in hospital then to rehab.home in december had another stroke sent to [facility]( discovered infection to aoritc repair ) sent him to [facility] aortic aneurysm replacement ( with cadaver) in 01/24, then to [facility] D/C to home april 05. As a baby had a leaky valve and extra valve. some low BP with dialysis. short term memory loss. left foot feels asleep. left side weak. History of Any Multi-Drug Resistant Organisms: None Reported Additional Past Surgical History / Comment(s): aortic aneurysm repair 03/25, 2nd surgery replacement 01/28/22. Repair of leaky valve as . peritoneal dialysis catheter. stent in kidney. procedures at [facility] Past Anesthesia/Blood Transfusion Reactions: No Reported Reaction Past Psychological History: Anxiety, Depression Smoking Status: Vaper Past Alcohol Use History: None Reported Past Drug Use History: None Reported - Past Family History Mother Family Medical History: Cancer Additional Family Medical History / Comment(s): breast cancer. 2003 Father Family Medical History: Hyperlipidemia, Hypertension, Myocardial Infarction (CO) Medications and Allergies Home Medications Medication Instructions Recorded Confirmed Type Aspirin 81 mg PO DAILY 06/05/22 02/28/23 History Atorvastatin [Lipitor] 40 mg PO DAILY 06/05/22 02/28/23 History Citalopram Hydrobromide 20 mg PO DAILY 06/05/22 02/28/23 History [Citalopram HBr] Furosemide [Lasix] 80 mg PO DAILY 09/12/22 02/28/23 History Apixaban [Eliquis] 5 mg PO BID 02/28/23 02/28/23 History Calcium Acetate 667mg Capsule 1 cap PO TID-W/MEALS 02/28/23 02/28/23 History Omeprazole 40 mg PO DAILY 02/28/23 02/28/23 History Vit B Comp No.3/Folic/C/Biotin 1 tab PO DAILY 02/28/23 02/28/23 History [Daphnie-Richard Rx Tablet] Allergies Allergy/AdvReac Type Severity Reaction Status Date / Time No Known Allergies Allergy Verified 02/28/23 19:36 Physical Exam Vitals: Vital Signs Temp Pulse Pulse Resp BP BP Pulse Ox 03/01/23 14:00 97.8 F 83 14 134/78 98 03/01/23 08:00 89 17 03/01/23 07:05 98.3 F 89 17 113/66 98 03/01/23 01:59 97.9 F 89 16 121/67 98 02/28/23 22:28 97.7 F 94 16 125/76 97 02/28/23 22:00 90 18 121/84 100 02/28/23 19:39 92 18 119/77 02/28/23 17:07 99 18 120/72 100 Intake and Output 03/01/23 03/01/23 03/01/23 06:59 14:59 22:59 Other: Weight 72.575 kg No acute distress S1-S2 heard Decreased breath sounds Abdomen soft Edema Left upper arm AVG, swollen. Results - Lab Results Most recent lab results Calcium 8.2 mg/dL (8.4-10.2) L 03/01/23 05:29 Phosphorus 6.7 mg/dL (2.5-4.5) H 03/01/23 05:29 Magnesium 1.9 mg/dL (1.6-2.3) 03/01/23 05:29 03/01/23 05:29 03/01/23 05:29 Assessment and Plan Assessment: #1 left upper arm AVG swelling. #2 missed dialysis #3 anemia with ESRD #4 hypertension with ESRD #5 metabolic bone disease Plan: #1 hemodialysis today. Next treatment on Friday. #2 if swelling persistent, unable to finish treatment, plan permacath. #3 vascular surgery on board
[2023-03-01] MEDS: ACETAMINOPHEN TAB 325 MG TAB PO PRN (17:38)
--- NOTE | 2023-03-01 18:10 | P.PN ---
Subjective Progress Note Date: 03/01/23 Patient is a 32-year-old male with a PMH of ESRD secondary to polycystic kidney disease on HD MWF via LUE graft, multiple CVAs, status post open heart surgery for valvular repair as per patient who presents to the emergency room for a malfunctioning fistula with 2 missed HD sessions. On arrival to the ER he was tachycardic with a pulse of 105. Initial laboratory analysis was remarkable for hemoglobin 11.6, INR 1.8, sodium 135, BUN 21, creatinine 15.75, BNP 75215. He was admitted for concerns of malfunctioning hemodialysis access site. Vascular surgery was consulted and felt that the fistula was able to be used. He was seen by nephrology and hemodialysis was ordered. They were able to access his graft. Patient seen and examined at bedside. He states they've not been able to use his hemo-dialysis fistula for the last 2 days. He is having some pain at the site. He has no other complaints currently. He initially was on peritoneal dialysis due to polycystic kidney disease and then had an infection and had to be switched to hemodialysis recently. He follows with Dr. Sagastume. Vital signs reviewed General: nontoxic, no distress, appears at stated age Left upper arm with significant nonpitting edema, bruising near the elbow and axilla Cardiovascular: S1S2 reg, no murmur, positive posterior tibial pulse bilateral, Lungs: CTA bilateral, no rhonchi, no rales , no accessory muscle use Ext: no gross muscle atrophy, no edema b/l lower extremities, no contractures Neuro: CN II-XI grossly intact, no focal neuro deficits Psych: Alert, oriented, appropriate affect Assessment/Plan: Left upper extremity AV graft swelling due to nearby hematoma End-stage renal disease with missed dialysis due to polycystic kidney disease Anemia of chronic disease secondary to end-stage renal disease -Case discussed with nephrology. They were able to access the site today. We'll attempt hemodialysis an extensive access will patient can likely be discharged home in the morning. If unsuccessful will need placement of a temporary dialysis catheter. -Hemodialysis today -Repeat BMP in AM Chronic: Aortic aneurysm repair Multiple CVA GERD Dyslipidemia Imaging: Left humerus x-ray-no acute osseous pathology, mild edema. Chest l-[id number] changes with mild blunting of the costophrenic angles Left upper extremity Doppler: Left arm dialysis graft/fistula appears to be patent, large complex collection adjacent to the fistula likely hematoma. Data Review: Labs from today are CBC, basic metabolic profile, magnesium, and phosphorus which are remarkable for hemoglobin 11, sodium 137, chloride 94, carbon dioxide 18, BUN 89, creatinine 16.26, phosphorus 6.7 DVT prophylaxis: early ambulation Anticipate possible discharge home in a.m. This dictation was prepared using [employer] voice recognition software. Though every attempt is made to correct errors during dictation some may still exist Objective - Vital Signs Vital signs: Vital Signs Temp 97.8 F 03/01/23 14:00 Pulse 83 03/01/23 14:00 Resp 14 03/01/23 14:00 BP 134/78 03/01/23 14:00 Pulse Ox 98 03/01/23 14:00 FiO2 Intake & Output 02/28/23 03/01/23 03/01/23 18:59 06:59 18:59 Weight 72.575 kg 72.575 kg - Labs CBC & Chem 7: 03/01/23 05:29 03/01/23 05:29 Labs: Abnormal Lab Results - Last 24 Hours (Table) 02/28/23 03/01/23 03/01/23 Range/Units 16:09 05:29 05:29 RBC 3.59 L (4.30-5.90) m/uL Hgb 11.0 L (13.0-17.5) gm/dL Hct 33.8 L (39.0-53.0) % RDW 16.6 H (11.5-15.5) % Sodium 135 L 135 L (137-145) mmol/L Chloride 95 L 94 L (98-107) mmol/L Carbon Dioxide 20 L 18 L (22-30) mmol/L BUN 91 H 89 H (9-20) mg/dL Creatinine 15.75 H* 16.26 H* (0.66-1.25) mg/dL Calcium 8.2 L (8.4-10.2) mg/dL Phosphorus 6.7 H (2.5-4.5) mg/dL AST 16 L (17-59) U/L
[2023-03-01] MEDS: SEVELAMER 800 MG TAB PO SCH (20:18)
[2023-03-02 00:08] LABS: Hepatitis B Surface AB- Quant 37.2 mIU/mL
[2023-03-02] MEDS: ACETAMINOPHEN TAB 325 MG TAB PO PRN (03:00)
[2023-03-02] MEDS: ONDANSETRON 4 MG/2 ML VIAL IVP PRN ×2 (03:52→15:29)
[2023-03-02] MEDS: SEVELAMER 800 MG TAB PO SCH ×2 (08:13→13:50)
[2023-03-02] MEDS: CITALOPRAM HYDROBROMIDE 20 MG TAB PO SCH (08:13)
[2023-03-02] MEDS: ASPIRIN 81 MG PO SCH (08:13)
[2023-03-02] MEDS: ATORVASTATIN 40 MG TAB PO SCH (08:13)
[2023-03-02] MEDS ORDERED: FOLIC ACID-VIT B COMPLEX-VIT C 1 CAP PO SCH (09:00)
[2023-03-02 12:08] LABS: Anisocytosis Slight; HCT 37.4 % (39.0-53.0); HGB 12.4 gm/dL (13.0-17.5); MCH 31.1 pg (25.0-35.0); MCHC 33.3 g/dL (31.0-37.0); MCV 93.5 fL (80.0-100.0); Mean Platelet Volume 7.9; Platelet Count 244 k/uL (150-450); RDW 16.5 % (11.5-15.5); WBC 7.2 k/uL (3.8-10.6)
[2023-03-02 12:26] LABS: African American GFR (CKD) 6 (>60 ml/min/1.73 sqM); Anion Gap 20 mmol/L; Blood Urea Nitrogen 56 mg/dL (9-20); Carbon Dioxide 28 mmol/L (22-30); Chloride 88 mmol/L (98-107); Non-African American GFR(CKD) 5 (>60 ml/min/1.73 sqM); Potassium 4.1 mmol/L (3.5-5.1); Sodium 136 mmol/L (137-145)
[2023-03-02 12:27] LABS: Glucose 101 mg/dL (74-99)
--- NOTE | 2023-03-02 13:19 | P.PN ---
Subjective Progress Note Date: 03/02/23 Patient was successfully dialyzed yesterday. Objective - Vital Signs Vital signs: Vital Signs Temp 98.1 F 03/02/23 07:37 Pulse 90 03/02/23 07:37 Resp 16 03/02/23 07:37 BP 121/73 03/02/23 07:37 Pulse Ox 97 03/02/23 07:37 FiO2 Intake & Output 03/01/23 03/02/23 03/02/23 18:59 06:59 18:59 Intake Total 400 Output Total 2400 Balance -1999 Intake: Hemodialysis 400 Output: Hemodialysis 2400 Other: # Voids 0 1 - Exam Awake alert. AV graft with excellent pulse. - Labs CBC & Chem 7: 03/02/23 11:27 03/02/23 11:27 Labs: Abnormal Lab Results - Last 24 Hours (Table) 03/01/23 03/02/23 03/02/23 Range/Units 16:10 11:27 11:27 RBC 4.00 L (4.30-5.90) m/uL Hgb 12.4 L (13.0-17.5) gm/dL Hct 37.4 L (39.0-53.0) % RDW 16.5 H (11.5-15.5) % Sodium 136 L (137-145) mmol/L Chloride 88 L (98-107) mmol/L BUN 56 H (9-20) mg/dL Creatinine 11.22 H* (0.66-1.25) mg/dL Glucose 101 H (74-99) mg/dL Hep Bs Antibody A (Negative) Assessment and Plan Plan: Patient surgically stable for dismissal with outpatient dialysis. Patient was asked follow-up with Dr. Shah in 3-4 weeks, sooner should symptoms warrant.
[2023-03-02 14:53] VITALS: BP 100/63; PULSE 100; RESP 15; TEMP 97.8
--- NOTE | 2023-03-02 15:44 | P.PN ---
Subjective Progress Note Date: 03/02/23 Follow-up for ESRD. Tolerated treatment well yesterday. No access related issues. Objective - Vital Signs Vital signs: Vital Signs Temp 97.8 F 03/02/23 13:42 Pulse 100 03/02/23 13:42 Resp 15 03/02/23 13:42 BP 100/63 03/02/23 13:42 Pulse Ox 98 03/02/23 13:42 FiO2 Intake & Output 03/01/23 03/02/23 03/02/23 18:59 06:59 18:59 Intake Total 400 Output Total 2400 Balance -1999 Intake: Hemodialysis 400 Output: Hemodialysis 2400 Other: # Voids 0 1 - Exam No acute distress S1-S2 heard Lungs clear Abdomen soft No edema Left upper arm aVF swollen - Labs CBC & Chem 7: 03/02/23 11:27 03/02/23 11:27 Labs: Abnormal Lab Results - Last 24 Hours (Table) 03/01/23 03/02/23 03/02/23 Range/Units 16:10 11:27 11:27 RBC 4.00 L (4.30-5.90) m/uL Hgb 12.4 L (13.0-17.5) gm/dL Hct 37.4 L (39.0-53.0) % RDW 16.5 H (11.5-15.5) % Sodium 136 L (137-145) mmol/L Chloride 88 L (98-107) mmol/L BUN 56 H (9-20) mg/dL Creatinine 11.22 H* (0.66-1.25) mg/dL Glucose 101 H (74-99) mg/dL Hep Bs Antibody A (Negative) Assessment and Plan Assessment: #1 left upper arm AVG swelling. #2 missed dialysis #3 anemia with ESRD #4 hypertension with ESRD #5 metabolic bone disease Plan: #1 hemodialysis yesterday, tolerated well. #2 stable from nephrology for discharge to be followed up in the clinic #3 vascular surgery on board
--- NOTE | 2023-03-02 18:31 | P.DS ---
Providers Date of admission: 02/28/23 21:09 Expected date of discharge: 03/02/23 Attending physician: Yesica Martinez MD Consults: 02/28/23 21:09 Consult Physician Routine Consulting Provider: Esteban Sherman Consult Reason/Comments: fistula,Hematoma Do you want consulting provider notified?: Yes 02/28/23 23:43 Consult Physician Urgent Consulting Provider: Nathaly Luna Consult Reason/Comments: HD resumption after fistula repair Do you want consulting provider notified?: Yes Primary care physician: Lakhwinder De Leon Hospital Course: Discharge Diagnosis: Left upper extremity AV graft swelling due to nearby hematoma End-stage renal disease with missed dialysis due to polycystic kidney disease Anemia of chronic disease secondary to end-stage renal disease Hospital Course: Patient is a 32-year-old male with a PMH of ESRD secondary to polycystic kidney disease on HD MWF via LUE graft, multiple CVAs, status post open heart surgery for valvular repair as per patient who presents to the emergency room for a malfunctioning fistula with 2 missed HD sessions. On arrival to the ER he was tachycardic with a pulse of 105. Initial laboratory analysis was remarkable for hemoglobin 11.6, INR 1.8, sodium 135, BUN 21, creatinine 15.75, BNP 42123. He was admitted for concerns of malfunctioning hemodialysis access site. Vascular surgery was consulted and felt that the fistula was able to be used. He was seen by nephrology and hemodialysis was ordered. They were able to access his graft. He tolerated his entire round of hemodialysis. He was determined stable for discharge by both nephrology and vascular surgery. Follow-up: Dr. Copeland at HD, Dr. Shah in 1 week for rechck of hematoma, Dr. De Leon in 1-2 days. Additional medicaitons: Lidocaine cream to AVG 1/2 hours prior to HD, norco 5/325 # 3 tablets given to use prior to HD. No homemedication adjustments were indicated for patient Patient seen and examined at bedside. Swelling is somewhat better and his left upper arm. He denies any chest pain or shortness of breath. He states he tolerated dialysis well but did have some pain with access. He is comfortable using cream and [place] as needed to help him be able to continue dialysis until hematoma resolves. Vital signs reviewed and stable. General: nontoxic, no distress, appears at stated age Upper extremity: Left upper extremity with swelling, bruising along the medial aspect of the left upper arm Cardiovascular: S1S2 reg, no murmur, positive posterior tibial pulse bilateral, Lungs: CTA bilateral, no rhonchi, no rales , no accessory muscle use Neuro: CN II-XI grossly intact, no focal neuro deficits Psych: Alert, oriented, appropriate affect A total of 25 minutes of time were spent preparing this complex discharge summary. Patient was discharged on 03/02/23. This dictation was prepared using S[employer] voice recognition software. Though every attempt is made to correct errors during dictation some may still exist. Patient Condition at Discharge: Fair Plan - Discharge Summary Discharge Rx Participant: No New Discharge Prescriptions: New Lidocaine-Prilocaine Cream [Emla Cream 2.5%/2.5%] 1 applic TOPICAL DIRECTED #5 gm Sevelamer [Renvela] 1,600 mg PO TID-W/MEALS tab HYDROcodone/APAP 5-325MG [[place] 5-325] 1 tab PO DIRECTED PRN 3 Days #3 tab PRN Reason: Pain Continue Furosemide [Lasix] 80 mg PO DAILY Apixaban [Eliquis] 5 mg PO BID Omeprazole 40 mg PO DAILY Vit B Comp No.3/Folic/C/Biotin [Daphnie-Richard Rx Tablet] 1 tab PO DAILY Citalopram Hydrobromide [Citalopram HBr] 20 mg PO DAILY Atorvastatin [Lipitor] 40 mg PO DAILY Aspirin 81 mg PO DAILY Calcium Acetate 667mg Capsule 1 cap PO TID-W/MEALS Discharge Medication List Aspirin 81 mg PO DAILY 06/05/22 [History] Atorvastatin [Lipitor] 40 mg PO DAILY 06/05/22 [History] Citalopram Hydrobromide [Citalopram HBr] 20 mg PO DAILY 06/05/22 [History] Furosemide [Lasix] 80 mg PO DAILY 09/12/22 [History] Apixaban [Eliquis] 5 mg PO BID 02/28/23 [History] Calcium Acetate 667mg Capsule 1 cap PO TID-W/MEALS 02/28/23 [History] Omeprazole 40 mg PO DAILY 02/28/23 [History] Vit B Comp No.3/Folic/C/Biotin [Daphnie-Richard Rx Tablet] 1 tab PO DAILY 02/28/23 [History] HYDROcodone/APAP 5-325MG [[place] 5-325] 1 tab PO DIRECTED PRN 3 Days #3 tab 03/02/23 [Rx] Lidocaine-Prilocaine Cream [Emla Cream 2.5%/2.5%] 1 applic TOPICAL DIRECTED #5 gm 03/02/23 [Rx] Sevelamer [Renvela] 1,600 mg PO TID-W/MEALS tab 03/02/23 [Rx] Follow up Appointment(s)/Referral(s): Karlos Shah DO [STAFF PHYSICIAN] - 1 Week Lakhwinder De Leon MD [Primary Care Provider] - 1-2 days Tre Copeland DO [STAFF PHYSICIAN] - 1 Week (at hemodialysis ) Activity/Diet/Wound Care/Special Instructions: Activity: As tolerated Diet: Renal diet Special Instructions: Use cream 1/2 hours before dialysis. Discharge Disposition: HOME SELF-CARE
[2023-03-03 11:20] LABS: Hepatitis B Surface Antigen Nonreactive
== END 2023-03-02 16:58 | disposition home or self-care (01) | DRG 314 ==
LOC: EC 15:38 → 4SSUR 21:09
PROVIDERS: ADMIT Internal Medicine; ATTEND Internal Medicine
PROC: 5A1D70Z Performance of Urinary Filtration, Intermittent, Less than 6 Hours Per Day (ICD-10-PCS; principal; 2023-03-01)
DX: T82.511A Breakdown (mechanical) of surgically created arteriovenous shunt, initial encounter (principal); N18.6 End stage renal disease; Q61.2 Polycystic kidney, adult type; I12.0 Hypertensive chronic kidney disease with stage 5 chronic kidney disease or end stage renal disease; Y71.2 Prosthetic and other implants, materials and accessory cardiovascular devices associated with adverse incidents; Z79.01 Long term (current) use of anticoagulants; Z79.82 Long term (current) use of aspirin; Z79.899 Other long term (current) drug therapy; Z82.49 Family history of ischemic heart disease and other diseases of the circulatory system; Z86.73 Personal history of transient ischemic attack (TIA), and cerebral infarction without residual deficits; Z99.2 Dependence on renal dialysis; M89.8X9 Other specified disorders of bone, unspecified site; K21.9 Gastro-esophageal reflux disease without esophagitis; F41.9 Anxiety disorder, unspecified; F32.A Depression, unspecified; E78.5 Hyperlipidemia, unspecified; D63.1 Anemia in chronic kidney disease
CPT/HCPCS: 36415; 71045; 80048; 80053; 83605; 83735; 83880; 84100; 85025; 85027; 85610; 85730; 86706; 87340; 90935; 96374; 96376; 99285

== ENCOUNTER 2024-11-08 10:18 | Day surgery (SDC) | payer MEDICARE, OTHER ==
[2024-11-04 12:48] VITALS: BMI 25.2
[2024-11-08] MEDS: SODIUM CHLORIDE 0.9% 500 ML 500 ML IV SCH (10:49)
[2024-11-08] MEDS: SODIUM CHLORIDE 0.9% 500 ML 500 ML IV ONE (10:49)
[2024-11-08 11:14] VITALS: PULSE 85; RESP 16; TEMP 98.9
[2024-11-08 11:19] LABS: Basophils # (A) 0.08 10*3/uL (0.00-0.10); Basophils % (A) 2.1 %; Eosinophils # (A) 0.12 10*3/uL (0.04-0.35); Eosinophils % (A) 3.1 %; HCT 37.7 % (39.6-50.0); HGB 12.8 g/dL (13.0-17.0); Lymphocytes # (A) 0.63 10*3/uL (0.90-5.00); Lymphocytes % (A) 16.5 %; MCH 32.3 pg (27.0-32.0); MCHC 34.0 g/dL (32.0-37.0); MCV 95.2 fL (80.0-97.0); Monocytes # (A) 0.39 10*3/uL (0.20-1.00); Monocytes % (A) 10.2 %; Neutrophils # (A) 2.58 10*3/uL (1.80-7.70); Neutrophils % (A) 67.8 %; Platelet Count 194 10*3/uL (140-440); RBC 3.96 10*6/uL (4.40-5.60); RDW 13.5 % (11.5-14.5); WBC 3.81 10*3/uL (4.50-10.00)
[2024-11-08 11:29] LABS: African American GFR (CKD) 6 (>60 ml/min/1.73 sqM); Anion Gap 19 mmol/L; Blood Urea Nitrogen 71 mg/dL (9-20); Calcium 10.2 mg/dL (8.4-10.2); Carbon Dioxide 24 mmol/L (22-30); Chloride 95 mmol/L (98-107); Glucose 89 mg/dL (74-99); Non-African American GFR(CKD) 5 (>60 ml/min/1.73 sqM); Potassium 4.2 mmol/L (3.5-5.1); Sodium 138 mmol/L (137-145)
[2024-11-08 11:31] LABS: INR 1.7 (<1.2); Prothrombin Time 17.3 sec (10.0-12.5)
[2024-11-08] MEDS: MIDAZOLAM 2 MG/2 ML VIAL IVP ONE (13:21)
[2024-11-08] MEDS: fentaNYL (PF) 50 MCG/ML 2 ML AMP IVP ONE (13:21)
[2024-11-08] MEDS: LIDOCAINE 1% INJ 10MG/ML (20 ML MDV) SQ ONE (13:21)
[2024-11-08] MEDS: IOPAMIDOL-370 100ML BTL INJ ONE (13:30)
--- NOTE | 2024-11-08 14:02 | IR ---
EXAMINATION TYPE: IR fistula/abscess/sinus tract DATE OF EXAM: 11/08/2024 1:48 PM COMPARISON: Pre Operative Images if available both CT/MRI or plain film CLINICAL INDICATION: Male, 34 years old with history of FISTULAGRAM; TECHNIQUE: IR fistula/abscess/sinus tract, multiple fluoroscopic images provided for procedure. DAP: 3.4 mGym2 Gycm2 uGym2 cGycm2 or equivalent. FINDINGS: IMPRESSION: 1. Report was generated for administrative purposes only. 2. Please see the operative/procedural note for further details. [facility], , 11/08/2024 2:00 PM
--- NOTE | 2024-11-08 14:38 | P.OP ---
Description of Procedure: Date: 11/08/2024 Preoperative diagnosis: End-stage renal disease, malfunctioning left upper extremity arteriovenous fistula possible outflow stenosis Postoperative diagnosis: Same, superior vena cava occlusion Procedure: Left upper extremity fistulogram with ultrasound guided access Surgeon: Karlos Shah DO Anesthesia : Local Estimated blood loss: Minimal Complications: None Condition: Stable Disposition: Palpable thrill at the fistula Indications: 34-year-old gentleman with history of open heart surgery, left upper extremity arteriovenous fistula presents to the hospital for elective fistulogram due to increased bleeding after his dialysis. He states his dialysis is going well otherwise but has noticed some 15 to 20 minutes of holding pressure prior to hemostasis. Operative narrative: After written informed consent was obtained the patient all risks benefits competitions were described the patient is brought to the [employer] and laid in a supine position with their left arm outstretched on an armboard. The area of the arm was prepped and draped in usual sterile fashion. Utilizing local anesthetic the fistula was accessed under ultrasound guidance and a 6-[place] sheath was placed. 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 There is collateralization noted throughout the upper chest area filling the heart via a collateral extending to the brachiocephalic on the right. Wire was placed without any success getting across this area which is likely tied off from his previous surgery. Once completed suture was placed for hemostasis and the sheath was removed.
[2024-11-08 17:38] VITALS: BP 117/81
== END 2024-11-08 14:50 | disposition home or self-care (01) ==
LOC: CATHCVL 10:18
PROVIDERS: ATTEND Surgery
DX: T82.590A Other mechanical complication of surgically created arteriovenous fistula, initial encounter (principal); N18.6 End stage renal disease; Z99.2 Dependence on renal dialysis
CPT/HCPCS: 80048; 85025; 85610; 36901; J2250; J2003; J3010; Q9967